=== PATIENT | female | born 1990 | race Caucasian/White ===

== ENCOUNTER 2020-05-24 18:58 | Emergency (ER) | payer OTHER ==
[2020-05-24 20:06] LABS: BASOPHIL 0.6 % (0-2); EOSINOPHIL 0.3 % (0-5); HCT 34.2 % (37.0-47.0); HGB 11.6 g/dl (12.5-16.0); LYMPHOCYTE 33.6 % (15-48); MCH 29.5 pg (25.0-31.0); MCHC 33.9 g/dL (32.0-36.0); MONOCYTE 11.9 % (0-12); NEUTROPHIL 53.4 % (41-80); NRBC 0; PLT 157 K/uL (150-400); RBC 3.93 M/uL (4.20-5.40); WBC 6.6 K/uL (4.0-10.5)
[2020-05-24 20:30] LABS: BUN/CREAT RATIO (CALC) 18.8 RATIO; CREATININE 0.48 mg/dL (0.51-0.95); POTASSIUM 3.3 mmol/L (3.5-5.1)
[2020-05-24 21:28] LABS: BILIRUBIN 1+ mg/dL (NEGATIVE); BLOOD 3+ Ery/uL (NEGATIVE); CLARITY CLOUDY (CLEAR); COLOR RED (YELLOW); GLUCOSE (U) NORMAL (NORMAL); LEUKOCYTES TRACE Leu/uL (NEGATIVE); NITRITE POSITIVE (NEGATIVE); PROTEIN 2+ mg/dL (NEGATIVE); SPECIFIC GRAVITY >=1.030 (1.001-1.030); pH 5.5 (5.0-9.0)
[2020-05-24 21:34] LABS: BACTERIA 4+; URINARY RBC TNTC
[2020-05-24] MEDS ORDERED: MACROBID100 MG PO (21:47)
== END 2020-05-24 22:01 | disposition home or self-care (01) ==
LOC: FER 18:58
PROVIDERS: Emergency Medicine; Nurse Practitioner Family
DX: O23.41 Unspecified infection of urinary tract in pregnancy, first trimester (principal); Z3A.01 Less than 8 weeks gestation of pregnancy
CPT/HCPCS: 36415; 80048; 81001; 85025; 87076; 87088; 87186; 99284; J7030; J7040